=== PATIENT | male | born 1985 | race Caucasian/White ===

== ENCOUNTER 2024-04-29 13:13 | Emergency (ER) | payer OTHER ==
[2024-04-29 13:26] VITALS: RESP 18
--- NOTE | 2024-04-29 13:44 | ED ---
Skin/Abscess/FB HPI - General Chief complaint: Skin/Abscess/Foreign Body Stated complaint: L leg injury Time Seen by Provider: 04/29/24 13:29 Source: patient, RN notes reviewed Mode of arrival: ambulatory Limitations: no limitations - History of Present Illness Initial comments: This is a 38-year-old male who presents to the emergency department for left leg pain. Patient states that he was kicked by a horse in the left leg about a week ago. He developed an area to the left thigh that almost appeared like an abscess. It was increasing in size and was very warm and tender. He went to urgent care today and they attempted to drain it, however only blood was expressed. He was advised to come to the emergency department for further evaluation of potential infection. Denies any fevers or chills. States that this is increasingly painful. - Related Data Home Medications Medication Instructions Recorded Confirmed Cetirizine HCl [Zyrtec] 10 mg PO DAILY 04/29/24 04/29/24 Unknown Anxiety Medication 1 dose PO DAILY 04/29/24 04/29/24 Previous Rx's Medication Instructions Recorded Cephalexin [Keflex] 500 mg PO Q6HR 10 Days #40 cap 04/29/24 Ibuprofen [Motrin] 800 mg PO Q8H PRN #30 tab 04/29/24 Sulfamethox-Tmp 800-160Mg [Bactrim 1 tab PO Q12HR 10 Days #20 tab 04/29/24 DS 800-160 mg] Allergies Allergy/AdvReac Type Severity Reaction Status Date / Time No Known Allergies Allergy Verified 04/29/24 14:47 Review of Systems ROS Statement: Those systems with pertinent positive or pertinent negative responses have been documented in the HPI. ROS Other: All systems not noted in ROS Statement are negative. Past Medical History Past Medical History: No Reported History History of Any Multi-Drug Resistant Organisms: None Reported Past Surgical History: Cholecystectomy Past Psychological History: No Psychological Hx Reported Smoking Status: Vaper Past Alcohol Use History: Occasional Past Drug Use History: None Reported General Exam Limitations: no limitations General appearance: alert, in no apparent distress Head exam: Present: atraumatic, normocephalic, normal inspection Respiratory exam: Present: normal lung sounds bilaterally. Absent: respiratory distress, wheezes, rales, rhonchi, stridor Cardiovascular Exam: Present: regular rate, normal rhythm, normal heart sounds. Absent: systolic murmur, diastolic murmur, rubs, gallop, clicks Extremities exam: Present: other (Large erythematous, raised, warm, and tender area to the left thigh suggestive of an abscess or phlegmon with erythema, indur ation, and warmth spreading distally and proximally) Neurological exam: Present: alert, oriented X3, CN II-XII intact Psychiatric exam: Present: normal affect, normal mood Course Vital Signs 04/29/24 04/29/24 13:23 15:13 Temperature 98.0 F 98.4 F Pulse Rate 94 68 Respiratory 18 18 Rate Blood Pressure 149/89 131/72 O2 Sat by Pulse 98 98 Oximetry Medical Decision Making - Medical Decision Making This is a 38 year old male who presents to the emergency department for left leg pain, swelling, and redness. Was pt. sent in by a medical professional or institution? @ -Urgent care Did you speak to anyone other than the patient for history? @ -No Did you review nursing and triage notes? @ -Yes, and I agree, it is accurate with regards to the patient's symptoms. Were old charts reviewed? @ -No Differential Diagnosis? @ -Differential Leg Pain: Leg fracture, leg sprain, DVT, PVD, arterial insufficiency, iliac artery aneurysm, cellulitis, compartment syndrome, tendinopathy, nerve entrapment, piriformis syndrome, osteoarthritis, rhabdomyolysis, myositis, cramping from an electrolyte imbalance, this is not meant to be an all inclusive list. EKG interpreted by me (3pts min.)? @ -Not obtained X-rays interpreted by me (1pt min.)? @ -Not obtained CT interpreted by me (1pt min.)? @ -CT scan of the left lower extremity obtained. My interpretation identifies a fluid collection above the left knee. U/S interpreted by me (1pt. min.)? @ -Not obtained What testing was considered but not performed? (CT, X-rays, U/S, labs)? Why? @ -None What meds were considered but not given? Why? @ -None Did you discuss the management of the patient with other professionals? @ -No Did you reconcile home meds? @ -No Was smoking cessation discussed for >3mins.? @ -No Was critical care preformed (if so, how long)? @ -No Were there social determinants of health that impacted care today? How? (Homelessness, low income, unemployed, alcoholism, drug addiction, transportation, low edu. Level, literacy, decrease access to med. care, [facility], rehab)? @ -No Was there de-escalation of care discussed even if they declined? (Discuss DNR or withdrawal of care, Hospice)? @ -No What co-morbidities impacted this encounter? (DM, HTN, Smoking, COPD, CAD, Cancer, CVA, Hep., AIDS, mental health diagnosis, sleep apnea, morbid obesity)? @ -None Was patient admitted / discharged? @ -Discharged. Lab work demonstrates elevated inflammatory markers with an ESR of 33 and CRP of 6.5. He had no leukocytosis or elevation in lactic acid. CT scan of the left lower extremity demonstrates a fluid collection just above the left knee medially suggesting an infected hematoma or developing abscess. Discussed with the patient that this may explain why they were not able to express purulence at urgent care, if it was strictly a hematoma or only a developing abscess. Given that they already made multiple attempts to drain this, we opted to avoid any additional attempts at this time. Patient has no comorbidities and given the lack of systemic signs or symptoms, patient is comfortable with attempting outpatient management first. We did however discuss very strict return parameters. He was given 1 g of ceftriaxone in the emergency department and a prescription for Bactrim and Keflex was provided. Ibuprofen prescribed for pain control. Advised warm compresses as well. He was also given information for general surgery follow-up for further evaluation. Undiagnosed new problem with uncertain prognosis? @ -None Drug Therapy requiring intensive monitoring for toxicity (Heparin, Nitro, Insulin, Cardizem)? @ -None Were any procedures done? @ -None Diagnosis/symptom? @ -Left lower extremity cellulitis Acute, or Chronic, or Acute on Chronic? @ -Acute Uncomplicated (without systemic symptoms) or Complicated (systemic symptoms)? @ -Uncomplicated Side effects of treatment? @ -None Exacerbation, Progression, or Severe Exacerbation] @ -Not applicable Poses a threat to life or bodily function? @ -Unlikely Return precautions reviewed in depth, the patient is instructed to return to the emergency department with any new, worsening, or concerning symptoms. Patient verbalized understanding. This case was discussed in detail with the attending ED physician, Dr. Martinez. Presentation, findings, and treatment plan discussed in detail as well. - Lab Data Result diagrams: 07/15/24 13:39 04/29/24 13:39 Lab Results 04/29/24 04/29/24 04/29/24 Range/Units 13:39 13:39 13:39 WBC 10.5 (3.8-10.6) k/uL RBC 4.56 (4.30-5.90) m/uL Hgb 13.8 (13.0-17.5) gm/dL Hct 41.2 (39.0-53.0) % MCV 90.4 (80.0-100.0) fL MCH 30.3 (25.0-35.0) pg MCHC 33.5 (31.0-37.0) g/dL RDW 12.9 (11.5-15.5) % Plt Count 268 (150-450) k/uL MPV 8.1 Neutrophils % 77 % Lymphocytes % 15 % Monocytes % 5 % Eosinophils % 1 % Basophils % 1 % Neutrophils # 8.1 H (1.3-7.7) k/uL Lymphocytes # 1.6 (1.0-4.8) k/uL Monocytes # 0.6 (0-1.0) k/uL Eosinophils # 0.1 (0-0.7) k/uL Basophils # 0.1 (0-0.2) k/uL Manual Slide Review Performed RBC Morphology Normal ESR 33 H (0-15) mm/Hr Sodium 139 (137-145) mmol/L Potassium 4.0 (3.5-5.1) mmol/L Chloride 106 (98-107) mmol/L Carbon Dioxide 24 (22-30) mmol/L Anion Gap 9 mmol/L BUN 19 (9-20) mg/dL Creatinine 0.95 (0.66-1.25) mg/dL Est GFR (CKD-EPI)AfAm >90 (>60 ml/min/1.73 sqM) Est GFR (CKD-EPI)NonAf >90 (>60 ml/min/1.73 sqM) Glucose 94 (74-99) mg/dL Plasma Lactic Acid Boni 0.9 (0.7-2.0) mmol/L Calcium 9.3 (8.4-10.2) mg/dL Total Bilirubin 1.1 (0.2-1.3) mg/dL AST 50 (17-59) U/L ALT 60 H (4-49) U/L Alkaline Phosphatase 47 (38-126) U/L C-Reactive Protein 6.5 H (<1.0) mg/dL Total Protein 6.8 (6.3-8.2) g/dL Albumin 4.2 (3.5-5.0) g/dL - Radiology Data Radiology results: report reviewed, image reviewed Disposition Clinical Impression: Cellulitis of left leg Disposition: HOME SELF-CARE Instructions (If sedation given, give patient instructions): Cellulitis (ED) Additional Instructions: Return to the emergency department with any new, worsening, or concerning symptoms. Take both antibiotics as prescribed for 10 days. Alternate with ibuprofen and Tylenol as needed for pain relief. Apply warm compresses. Contact the general surgery office listed below. See if they will see you in their office for a follow-up appointment within the week for possible developing abscess. If they cannot see you that quickly, you can follow-up with the surgery office near [place]. Make sure you follow-up with your primary care provider as well. Prescriptions: Sulfamethox-Tmp 800-160Mg [Bactrim DS 800-160 mg] 1 tab PO Q12HR 10 Days #20 tab Cephalexin [Keflex] 500 mg PO Q6HR 10 Days #40 cap Ibuprofen [Motrin] 800 mg PO Q8H PRN #30 tab PRN Reason: Pain Is patient prescribed a controlled substance at d/c from ED?: No Referrals: [facility] [Primary Care Provider] - 1-2 days Perez Johnson MD [STAFF PHYSICIAN] - 1-2 days Time of Disposition: 14:58
[2024-04-29] MEDS: SODIUM CHLORIDE 0.9% 1,000 ML IV STA (13:46)
[2024-04-29] MEDS: KETOROLAC 15 MG/ML 1 ML VIAL IVP STA ×2 (13:54→15:03)
[2024-04-29 14:22] LABS: Basophils # (A) 0.1 k/uL (0-0.2); Basophils % (A) 1 %; Eosinophils # (A) 0.1 k/uL (0-0.7); Eosinophils % (A) 1 %; HCT 41.2 % (39.0-53.0); HGB 13.8 gm/dL (13.0-17.5); Lymphocytes # (A) 1.6 k/uL (1.0-4.8); Lymphocytes % (A) 15 %; MCH 30.3 pg (25.0-35.0); MCHC 33.5 g/dL (31.0-37.0); MCV 90.4 fL (80.0-100.0); Mean Platelet Volume 8.1; Monocytes # (A) 0.6 k/uL (0-1.0); Monocytes % (A) 5 %; Neutrophils # (A) 8.1 k/uL (1.3-7.7); Neutrophils % (A) 77 %; Platelet Count 268 k/uL (150-450); RBC 4.56 m/uL (4.30-5.90); RDW 12.9 % (11.5-15.5); WBC 10.5 k/uL (3.8-10.6)
[2024-04-29 14:23] LABS: ALT 60 U/L (4-49); AST 50 U/L (17-59); African American GFR (CKD) >90 (>60 ml/min/1.73 sqM); Albumin 4.2 g/dL (3.5-5.0); Alkaline Phosphatase 47 U/L (38-126); Anion Gap 9 mmol/L; Blood Urea Nitrogen 19 mg/dL (9-20); C Reactive Protein 6.5 mg/dL (<1.0); Calcium 9.3 mg/dL (8.4-10.2); Carbon Dioxide 24 mmol/L (22-30); Chloride 106 mmol/L (98-107); Glucose 94 mg/dL (74-99); Non-African American GFR(CKD) >90 (>60 ml/min/1.73 sqM); Sodium 139 mmol/L (137-145); Total Bilirubin 1.1 mg/dL (0.2-1.3); Total Protein 6.8 g/dL (6.3-8.2)
--- NOTE | 2024-04-29 14:45 | CT ---
EXAMINATION TYPE: CT lower extremity LT w con DATE OF EXAM: 04/29/2024 COMPARISON: None HISTORY: Poss abscess to left thigh. pt was kicked by a horse x1 week ago, redness and swelling on in ner thigh above knee with bruising and swelling to the toes CT DLP: 1181.4 mGycm Automated exposure control for dose reduction was used. CONTRAST: Performed with IV Contrast, patient injected with 100ml mL of Isovue 300. Contrast enhanced CT of the left thigh through the left ankle is performed with bone and soft tissue window settings submitted. FINDINGS: Just above the level of the left knee medially there is a fluid collection noted measuring approximat aydin 10.0 x 10.3 cm. At the caudal component of there are scattered multiple foci of air. This could r eflect infected collection/hematoma or developing abscess. There is evidence of a subacute cutaneous edema extending from the mid thigh region through the left ankle. Osseous structures appear to be kofi ssly intact. No additional fluid collection seen at this time. IMPRESSION: 1.Just above the level of the left knee medially there is a fluid collection noted measuring approxim ately 10.0 x 10.3 cm. At the caudal component of there are scattered multiple foci of air. This could reflect infected collection/hematoma or developing abscess.
[2024-04-29 14:52] LABS: RBC Morphology Normal
[2024-04-29] MEDS: cefTRIAXone IN SWFI 1,000 MG/10 ML SYRINGE IVP STA (15:03)
[2024-04-29] MEDS: ACET/COD 300 MG/30 MG STARTER PACK 6 TAB BTL PO STA (15:04)
[2024-04-29 15:14] VITALS: BP 131/72; PULSE 68; TEMP 98.4
[2024-04-29 19:29] LABS: Erythrocyte Sedimentation Rate 33 mm/Hr (0-15)
== END 2024-04-29 16:00 | disposition home or self-care (01) ==
LOC: EC 13:13
DX: L03.116 Cellulitis of left lower limb (principal); F17.290 Nicotine dependence, other tobacco product, uncomplicated
CPT/HCPCS: 36415; 80053; 85652; 83605; 85025; 86140; 73701; 99284; 96374; 96375; 96376; 96361; J0696; J1885; Q9967